=== PATIENT | male | born 1950 | race Caucasian/White ===

== ENCOUNTER 2018-11-16 15:58 | Emergency (ER) | payer OTHER ==
[~2018-11-16] VITALS: Ht 172.7 cm; Wt 99.3 kg
[2018-11-16] MEDS ORDERED: ASPIR 8181 MG PO (16:50)
[2018-11-16] MEDS ORDERED: PLAVIX 75 MG TA75 M1 PO (16:51)
[2018-11-16 17:11] LABS: URINE BILIRUBIN NEGATIVE (Negative); URINE BLOOD NEGATIVE (Negative); URINE CLARITY CLEAR; URINE COLOR YELLOW; URINE GLUCOSE-RANDOM 3+ (Negative); URINE KETONES TRACE (Negative); URINE LEUKOCYTES-REFLEX NEGATIVE (Negative); URINE NITRITE-REFLEX NEGATIVE (Negative); URINE PROTEIN NEGATIVE (Negative); URINE UROBILINOGEN 0.2 E.U./dl (0.2-1.0)
[2018-11-16 17:23] LABS: ABSOLUTE EOSINOPHILS 0.2 thou/uL (0.0-0.7); ABSOLUTE LYMPHOCYTES 1.6 thou/uL (0.8-5.3); ABSOLUTE MONOCYTES 0.9 thou/uL (0.0-1.2); ABSOLUTE NEUTROPHILS 6.6 thou/uL (1.6-8.1); BASOPHILS 0.4 %; EOSINOPHILS 2.4 %; HEMATOCRIT 45.7 % (42.0-52.0); HEMOGLOBIN 14.9 gm/dL (14.0-18.0); LYMPHOCYTES 16.8 %; MCH 28.8 pg (26.0-34.0); MCHC 32.7 g/dL (28.0-37.0); MCV 88.1 fL (80.0-100.0); MPV 8.7 fl. (7.2-11.1); NUCLEATED RBCS 0 /100WBC; PLATELET COUNT* 234 thou/uL (150-400); POLYS 70.4 %; RBC 5.18 mil/uL (4.50-6.00); RDW-CV 14.6 % (10.5-14.5); WBC 9.4 thou/uL (4.0-11.0)
[2018-11-16 17:28] LABS: CALCIUM 9.2 mg/dL (8.5-10.1); CREATININE 0.8 mg/dL (0.6-1.3); POTASSIUM 5.4 mmol/L (3.5-5.1)
[2018-11-16 17:29] LABS: APTT 26.3 Seconds (25.0-31.3); INR 0.9; PROTIME 9.7 Seconds (9.20-11.50)
[2018-11-16 17:32] LABS: ALBUMIN 3.8 g/dL (3.4-5.0); TOTAL BILIRUBIN 0.5 mg/dL (<0.1-1.0); TOTAL PROTEIN 7.7 g/dL (6.4-8.2)
[2018-11-16] MEDS ORDERED: NITROGLYCERIN0.4 MG SUBLING (17:58)
[2018-11-16] MEDS ORDERED: PRAVACHOL40 M1 PO (18:01)
[2018-11-16] MEDS ORDERED: GLUCOPHAGE1000 MG PO (18:01)
[2018-11-16] MEDS ORDERED: ZANTAC 150MG T150 MG PO (18:02)
[2018-11-16] MEDS ORDERED: NORVASC10 MG PO (18:02)
[2018-11-16] MEDS ORDERED: TENORMIN50 MG PO (18:02)
[2018-11-16] MEDS ORDERED: JARDIANCE25 MG PO (18:11)
[2018-11-16 19:03] LABS: HEMATOCRIT 38.8 % (42.0-52.0); HEMOGLOBIN 13.1 gm/dL (14.0-18.0)
[2018-11-16 19:45] VITALS: BP 112/70
--- NOTE | 2018-11-19 13:38 | EKG ---
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 11/19/18 1338 D: [id number] Noah Khalil MD, FACC /EPI
== END 2018-11-16 19:44 | disposition short-term general hospital (02) ==
LOC: M.ERS 15:58
PROVIDERS: Nurse Practitioner Family
DX: K92.2 Gastrointestinal hemorrhage, unspecified (principal); I10 Essential (primary) hypertension; E11.9 Type 2 diabetes mellitus without complications

== ENCOUNTER → 2021-04-12 | Outpatient (CLI) | payer OTHER ==
[~2021-04-12] MED LIST: ASPIR 8181 MG PO; GLUCOPHAGE1000 MG PO; JARDIANCE25 MG PO; NITROGLYCERIN0.4 MG SUBLING; NORVASC10 MG PO; PLAVIX 75 MG TA75 M1 PO; PRAVACHOL40 M1 PO; TENORMIN50 MG PO; ZANTAC 150MG T150 MG PO
--- NOTE | 2021-04-12 14:18 | 2DMMODE ---
[place] [address] 2 D/M-MODE ECHOCARDIOGRAM Name: DIVINE STAHL Room: [facility]#: [id number] Admission: 04/12/21 Attend Phys: Fernando Lugo Discharge: Date of : 46 Date of Service: 04/12/21 1417 Report #: [id number] THIS REPORT FOR: cc: [facility] - Clinic physician unknown [facility] - Clinic physician unknown Noah Khalil MD [facility] ~ ADDENDUM APPROVED REPORT Study performed: 04/12/2021 13:30:51 EXAM: Comprehensive 2D, Doppler, and color-flow Echocardiogram Patient Location: Out-Patient BSA: 2.11 HR: 65 bpm BP: 130/80 mmHg Other Information Study Quality: Good Indications Ischemic heart disease 2D Dimensions IVSd: 14.03 (7-11mm) LVOT Diam: 20.15 (18-24mm) LVDd: 53.73 mm PWd: 11.17 (7-11mm) Ascending Ao: 39.89 (22-36mm) LVDs: 36.31 (25-40mm) Aortic Root: 32.49 mm Volumes Left Atrial Volume (Systole) LA ESV Index: 23.40 mL/m2 Aortic Valve AoV Peak Jose Alejandro.: 1.80 m/s AO Peak Gr.: 13.00 mmHg LVOT Max P.72 mmHg AO Mean Gr.: 7.88 mmHg LVOT Mean P.62 mmHg LVOT Max V: 0.96 m/s AO V2 VTI: 36.80 cm LVOT Mean V: 0.57 m/s MAKAYLA (VTI): 1.89 cm2 LVOT V1 VTI: 21.79 cm Mitral Valve E/A Ratio: 1.09 [place] [address] 2 D/M-MODE ECHOCARDIOGRAM Name: DIVINE STAHL Room: [facility]#: [id number] Admission: 04/12/21 Attend Phys: Fernando Lugo Discharge: Date of : 46 Date of Service: 04/12/21 1417 Report #: [id number] MV Decel. Time: 126.39 ms MV E Max Jose Alejandro.: 0.85 m/s MV PHT: 36.65 ms MVA (PHT): 6.00 cm2 TDI E/Lateral E': 8.50 E/Medial E': 17.00 Medial E' Jose Alejandro.: 0.05 m/s Lateral E' Jose Alejandro.: 0.10 m/s Pulmonary Valve PV Peak Jose Alejandro.: 0.98 m/s PV Peak Gr.: 3.82 mmHg Tricuspid Valve RAP Estimate: 5.00 mmHg TR Peak Gr.: 32.72 mmHg RVSP: 37.72 mmHg PA Pressure: 37.72 mmHg Left Ventricle The left ventricle is normal size. There is normal LV segmental wall motion. Mild concentric left ventricular hypertrophy. Left ventricular systolic function is normal. The left ventricular ejection fraction is within the normal range. LVEF is 50-55%. The left ventricular diastolic function is normal. Right Ventricle The right ventricle is normal size. The right ventricular systolic function is normal. Atria The left atrium size is normal. The right atrium size is normal. Aortic Valve Aortic valve is calcified. Mild aortic regurgitation. There is mild aortic valvular stenosis. Mitral Valve The mitral valve is mildly thickened. Mild mitral regurgitation. No evidence of mitral valve stenosis. Tricuspid Valve The tricuspid valve is normal in structure. Mild tricuspid regurgitation[place] [address] 2 D/M-MODE ECHOCARDIOGRAM Name: MARCO A STAHLYCE Anthony Room: [facility]#: [id number] Admission: 04/12/21 Attend Phys: Fernando Lugo Discharge: Date of : 46 Date of Service: 04/12/21 1417 Report #: [id number] The pulmonary valve is normal in structure. Mild pulmonic regurgitation. Great Vessels The aortic root is normal in size. The ascending aorta is mildly dilated. IVC is normal in size and collapses >50% with inspiration. Pericardium There is no pericardial effusion. <Conclusion> Mild concentric left ventricular hypertrophy. Mild aortic regurgitation. There is mild aortic valvular stenosis. Mild mitral regurgitation. LVEF is 50-55%. <ELECTRONICALLY SIGNED> By: Noah Khalil MD, FACC 04/12/211416 16 16 Noah Khalil MD, FACC /INF
== END ==
LOC: M.CRD 10:53
PROVIDERS: ATTEND Chiropractor
DX: I08.8 Other rheumatic multiple valve diseases (principal); I25.9 Chronic ischemic heart disease, unspecified